=== PATIENT | female | born 1940 | race Caucasian/White ===

== ENCOUNTER 2023-02-07 11:08 | Emergency (ER) | payer MEDICARE, BC ==
[~2023-02-07] VITALS: Ht 165.1 cm; Wt 55.1 kg
[2023-02-07] MEDS ORDERED: AMLODIPINE BESYL5 MG PO (13:08)
[2023-02-07] MEDS ORDERED: CARVEDILOL12.5 MG PO (13:08)
[2023-02-07] MEDS ORDERED: LEVOTHYROXINE100 MCG PO (13:08)
[2023-02-07] MEDS ORDERED: LOVASTATIN20 MG PO (13:08)
[2023-02-07] MEDS ORDERED: WARFARIN SODIUM5 MG PO (13:08)
[2023-02-07] MEDS ORDERED: HYDRALAZINE HCL25 MG PO (13:09)
[2023-02-07 15:50] VITALS: BP 138/61
== END 2023-02-07 15:50 | disposition home or self-care (01) ==
LOC: ED 11:08
DX: I10 Essential (primary) hypertension (principal); J84.10 Pulmonary fibrosis, unspecified; E03.9 Hypothyroidism, unspecified; E78.00 Pure hypercholesterolemia, unspecified; Z88.5 Allergy status to narcotic agent; Z79.899 Other long term (current) drug therapy; Z79.01 Long term (current) use of anticoagulants
CPT/HCPCS: 36415; 71045; 80053; 83880; 84484; 85025; 85610; 99283-25

== ENCOUNTER 2023-07-11 11:31 | Emergency (ER) | payer OTHER, MEDICARE, BC ==
[~2023-07-11] VITALS: Ht 154.9 cm; Wt 48.5 kg
[~2023-07-11 11:31] MED LIST: AMLODIPINE BESYL5 MG PO; CARVEDILOL12.5 MG PO; HYDRALAZINE HCL25 MG PO; LEVOTHYROXINE100 MCG PO; LOVASTATIN20 MG PO; WARFARIN SODIUM5 MG PO
[2023-07-11 11:50] VITALS: BP 152/109
[2023-07-11 12:06] LABS: BASOPHILS 0.8 % (0-2); EOSINOPHILS 2.5 % (0-6); HEMATOCRIT 39.7 % (35.0-50.0); HEMOGLOBIN 13.3 g/dL (12.0-18.0); LYMPHOCYTES 23.6 % (24-44); MCH 30.6 (27-36); MCHC 33.5 g/dl (30-36); MCV 91.4 fl (81-99); MONOCYTES 10.3 % (0-12); NEUTROPHILS 62.8 % (39-80); PLATELET COUNT 451 K/uL (140-440); RBC 4.35 M/ul (4.3-5.7)
[2023-07-11 12:19] LABS: ANION GAP 5.9 (7-21); BUN/CREATININE RATIO 15.49 (6.0-28.6); CALCIUM 8.9 mg/dL (8.5-10.1); CREATININE, SERUM 0.71 mg/dL (0.55-1.02); POTASSIUM 3.9 mmol/L (3.5-5.1)
[2023-07-11 12:21] LABS: PROTIME 29.9 Sec (11.2-14.2)
== END 2023-07-11 14:05 | disposition home or self-care (01) ==
LOC: ED 11:31
PROVIDERS: Emergency Medicine
DX: S01.01XA Laceration without foreign body of scalp, initial encounter (principal); W01.10XA Fall on same level from slipping, tripping and stumbling with subsequent striking against unspecified object, initial encounter; I10 Essential (primary) hypertension; E03.9 Hypothyroidism, unspecified; E78.00 Pure hypercholesterolemia, unspecified; I48.91 Unspecified atrial fibrillation; Z88.5 Allergy status to narcotic agent; Z79.899 Other long term (current) drug therapy; Z79.01 Long term (current) use of anticoagulants
CPT/HCPCS: 36415; 70450; 72125; 80048; 85025; 85610; 99283-25

== ENCOUNTER 2023-10-20 09:12 | Emergency (ER) | payer MEDICARE, BC ==
[~2023-10-20] VITALS: Ht 154.9 cm; Wt 48.4 kg
[2023-10-20 09:23] LABS: BASOPHILS 0.8 % (0-2); EOSINOPHILS 0.2 % (0-6); HEMATOCRIT 35.8 % (35.0-50.0); LYMPHOCYTES 24.3 % (24-44); MCH 30.3 (27-36); MCHC 33.5 g/dl (30-36); MCV 90.3 fl (81-99); MONOCYTES 12.7 % (0-12); PLATELET COUNT 296 K/uL (140-440); RBC 3.97 M/ul (4.3-5.7); RDW 13.1 (10.5-15.0)
[2023-10-20 09:33] LABS: INR 1.28 (0.80-1.30); PROTIME 15.2 Sec (11.2-14.2)
[2023-10-20 09:48] LABS: ALBUMIN 2.5 g/dL (3.4-5.0); ALBUMIN/GLOBULIN RATIO 0.45 (1.1-2.4); ALCOHOL, MEDICAL <3 ng/dL (<3); ALKALINE PHOSPHATASE 54 U/L (46-116); ALT (SGPT) 13 U/L (14-59); AST (SGOT) 23 U/L (15-37); BILIRUBIN, TOTAL 0.5 ng/dL (0.2-1.0); BUN/CREATININE RATIO 11.62 (6.0-28.6); CALCIUM 8.6 mg/dL (8.5-10.1); CARBON DIOXIDE 34 mmol/L (21-32); CHLORIDE 95 mmol/L (98-107); CREATININE, SERUM 0.86 mg/dL (0.55-1.02); GLOMERULAR FILTRATION RATE,EST 68 mL/min (>60); UREA NITROGEN 10 mg/dL (7-18)
== END 2023-10-20 10:55 | disposition home or self-care (01) ==
LOC: ED 09:12
PROVIDERS: Emergency Medicine
DX: S09.90XA Unspecified injury of head, initial encounter (principal); W19.XXXA Unspecified fall, initial encounter; Z79.01 Long term (current) use of anticoagulants; F03.90 Unspecified dementia, unspecified severity, without behavioral disturbance, psychotic disturbance, mood disturbance, and anxiety; I10 Essential (primary) hypertension; E03.9 Hypothyroidism, unspecified; I48.91 Unspecified atrial fibrillation; Z66 Do not resuscitate; Z88.5 Allergy status to narcotic agent; Z88.8 Allergy status to other drugs, medicaments and biological substances; Z79.899 Other long term (current) drug therapy; Z79.890 Hormone replacement therapy
CPT/HCPCS: 36415; 70450; 72125; 80053; 85025; 85610; A9270; G0480

== ENCOUNTER 2024-09-12 13:00 | Emergency (ER) | payer MEDICARE, BC ==
[~2024-09-12] VITALS: Ht 154.9 cm; Wt 41.7 kg
[~2024-09-12 13:00] MED LIST changes: +ARTHRITIS PAIN650 MG PO; +CALCIUM 600 MG1 EA10 PO; +CULTURELLE PO; +LOPERAMIDE2 MG PO; +MELATONIN5 M2 PO; +MEMANTINE HCL ER7 MG PO; +MONTELUKAST SOD10 MG PO; +MUCINEX DM ER1 EACH PO; +TRAMADOL HCL50 MG PO; +VOLTAREN ARTHRI20 GM TOP; +WARFARIN SODIU2.5 MG PO
[2024-09-12] MEDS ORDERED: QUETIAPINE FUMA25 MG PO (13:31)
[2024-09-12 13:52] LABS: BILIRUBIN, URINE NEGATIVE (negative); BLOOD/HGB, URINE TRACE-I (Negative); KETONE, URINE TRACE (Negative); LEUK ESTERASE, URINE NEGATIVE (negative); NITRITE, URINE NEGATIVE (negative); PH, URINE 5.5 (5-7)
[2024-09-12 13:59] LABS: BACTERIA, URINE RARE /hpf (negative); CASTS, URINE NONE SEEN \\lpf; COLLECTION TYPE, URINE CLEAN CATCH; CRYSTALS, URINE NONE SEEN (0-1+); EPITHELIAL CELLS, URINE SQUAMOUS 1+ /lpf (0-1+); REFLEX CULTURE, URINE No (No); WHITE BLOOD CELLS, URINE 0-1 /HPF (0-5)
[2024-09-12 14:49] VITALS: BP 167/101
== END 2024-09-12 14:50 | disposition home or self-care (01) ==
LOC: ED 13:00
PROVIDERS: Emergency Medicine
DX: R41.0 Disorientation, unspecified (principal); I10 Essential (primary) hypertension; E03.9 Hypothyroidism, unspecified; I48.91 Unspecified atrial fibrillation; E78.00 Pure hypercholesterolemia, unspecified; Z86.73 Personal history of transient ischemic attack (TIA), and cerebral infarction without residual deficits; Z66 Do not resuscitate; Z88.5 Allergy status to narcotic agent; Z88.8 Allergy status to other drugs, medicaments and biological substances; Z79.890 Hormone replacement therapy; Z79.01 Long term (current) use of anticoagulants; Z79.899 Other long term (current) drug therapy
CPT/HCPCS: 81001; 99284